=== PATIENT | female | born 1940 | race Caucasian/White ===

== ENCOUNTER 2021-06-27 19:38 | Observation (INO) | payer MEDICARE ==
[~2021-06-27] VITALS: Ht 170.2 cm; Wt 67.1 kg
[~2021-06-27 19:38] MED LIST: ALPRAZOLAM0.5 MG PO; AMLODIPINE BESYL5 MG PO; ASPIRIN81 MG PO; B-12250 MCG; CO Q-10200 MG PO; FISH OIL 1,0001 EAC1 PO; HYOSCYAMINE0.125 M2; ISOSORBIDE MONO60 MG PO; LACTULOSE10 GM/15 M PO; NITROGLYCERIN0.4 MG SL; RANITIDINE HCL150 MG PO; SIMVASTATIN20 MG PO; STOOL SOFTENER100 MG PO; ULTRAM 50MG50 MG PO; VITAMIN D1000 UNI1 PO
[2021-06-27 20:22] LABS: BASOPHILS # (AUTO) 0.1 (0.0-0.1); BASOPHILS % 0.6 % (0.0-1.0); EOSINOPHILS # (AUTO) 0.4 (0.0-0.4); EOSINOPHILS % 5.3 % (0.0-6.0); HEMATOCRIT 38.7 % (34.2-44.1); LYMPHOCYTES # (AUTO) 2.3 (1.0-3.2); LYMPHOCYTES % 28.4 % (18.0-39.1); MEAN CORPUSCULAR HEMOGLOBIN 31.3 pg (28-32); MEAN CORPUSCULAR VOLUME 100.8 fL (81-99); MONOCYTES # (AUTO) 0.9 (0.2-0.8); MONOCYTES % 10.3 % (4.4-11.3); NEUTROPHILS # (AUTO) 4.5 (2.1-6.9); NEUTROPHILS % 55.2 % (38.7-80.0); PLATELET COUNT 266 x10e3/uL (140-360); RED BLOOD COUNT 3.84 x10e6/uL (3.6-5.1); RED CELL DISTRIBUTION WIDTH 13.9 % (11.7-14.4)
[2021-06-27 20:33] LABS: INR 1.03; PROTHROMBIN TIME 14.2 seconds (11.9-14.5)
[2021-06-27 21:41] LABS: ALBUMIN 3.7 g/dL (3.5-5.0); ALBUMIN/GLOBULIN RATIO 1.1 (0.8-2.0); ANION GAP 14.7 mmol/L (8-16); CALCIUM 9.4 mg/dL (8.4-10.2); CREATININE, SERUM 1.89 mg/dL (0.57-1.11); POTASSIUM 4.7 mmol/L (3.5-5.1)
[2021-06-27] MEDS ORDERED: ASPIRIN 81 MG CHEW TAB PO ONE (22:00)
[2021-06-27] MEDS ORDERED: ASPIRIN 81 MG CHEW TAB ONE (22:15)
[2021-06-27] MEDS ORDERED: Morphine 2mg Syringe 2 MG/ML SYR IV ONE (23:00)
[2021-06-28] VITALS (10 sets, daily range): BP systolic 106–151; BP diastolic 41–83
[2021-06-28] MEDS ORDERED: MAGNESIUM SULFATE 2GM/50ML 50 ML IV ONE (00:45)
[2021-06-28] MEDS ORDERED: ENTRESTO 24 MG1 EACH PO (03:09)
[2021-06-28] MEDS ORDERED: ELIQUIS5 MG PO (03:09)
[2021-06-28] MEDS ORDERED: PANTOPRAZOLE SO40 MG PO (03:09)
[2021-06-28] MEDS ORDERED: TAMSULOSIN PO (03:09)
[2021-06-28] MEDS ORDERED: ULTRAM 50MG50 MG PO (03:09)
[2021-06-28] MEDS ORDERED: ATORVASTATIN CA40 MG PO (03:09)
[2021-06-28] MEDS ORDERED: CLOPIDOGREL75 MG PO (03:09)
[2021-06-28] MEDS ORDERED: FUROSEMIDE20 MG PO (03:09)
[2021-06-28] MEDS ORDERED: METOPROLOL SUCC25 MG PO (03:09)
[2021-06-28] MEDS: VALSARTAN/SACUBITRIL 24MG/26MG 1 EA TAB PO SCH (08:50)
[2021-06-28] MEDS: APIXABAN 5 MG TABLET PO SCH ×2 (08:50→16:32)
[2021-06-28] MEDS: METOPROLOL SUCCINATE 25 MG TAB XL PO SCH (08:50)
[2021-06-28] MEDS: CLOPIDOGREL BISULFATE 75 MG TAB PO SCH (08:50)
[2021-06-28 10:03] LABS: CREATINE KINASE MB 0.8 ng/mL (0-5.0)
[2021-06-28] MEDS ORDERED: ZIOPTAN 0.00151 EACH (13:11)
[2021-06-28] MEDS: DOCUSATE SODIUM 100 MG CAP PO SCH (13:27)
[2021-06-28] MEDS ORDERED: ALPRAZOLAM 0.5 MG TAB PO PRN (14:00)
[2021-06-28 16:24] LABS: CREATINE KINASE MB 0.7 ng/mL (0-5.0)
[2021-06-28] MEDS: GUAIFENESIN 600 MG TAB PO PRN (16:32)
[2021-06-28] MEDS ORDERED: TAMSULOSIN HCL 0.4 MG CAP PO SCH (21:00)
[2021-06-28] MEDS ORDERED: ATORVASTATIN 40 MG TAB PO SCH (21:00)
[2021-06-29] VITALS: BP 125/50
[2021-06-29 04:00] VITALS: BP 137/55
[2021-06-29 06:02] LABS: BASOPHILS # (AUTO) 0.1 (0.0-0.1); BASOPHILS % 0.7 % (0.0-1.0); EOSINOPHILS # (AUTO) 0.4 (0.0-0.4); EOSINOPHILS % 6.4 % (0.0-6.0); HEMATOCRIT 37.9 % (34.2-44.1); HEMOGLOBIN 12.2 g/dL (12.0-16.0); LYMPHOCYTES # (AUTO) 1.7 (1.0-3.2); MEAN CORPUSCULAR HEMOGLOBIN 31.5 pg (28-32); MEAN CORPUSCULAR HGB CONC 32.2 g/dL (31-35); MEAN CORPUSCULAR VOLUME 97.9 fL (81-99); MONOCYTES # (AUTO) 0.7 (0.2-0.8); MONOCYTES % 10.2 % (4.4-11.3); NEUTROPHILS # (AUTO) 3.8 (2.1-6.9); NEUTROPHILS % 57.3 % (38.7-80.0); PLATELET COUNT 251 x10e3/uL (140-360); RED BLOOD COUNT 3.87 x10e6/uL (3.6-5.1); RED CELL DISTRIBUTION WIDTH 13.7 % (11.7-14.4)
[2021-06-29 06:13] LABS: ALBUMIN 3.1 g/dL (3.5-5.0); ANION GAP 14.8 mmol/L (8-16); CALCIUM 9.3 mg/dL (8.4-10.2); CHOL/HDL RATIO 2.5 (3.0-3.6); CREATININE, SERUM 0.95 mg/dL (0.57-1.11); POTASSIUM 3.8 mmol/L (3.5-5.1)
[2021-06-29 06:35] LABS: THYROID STIMULATING HORMONE 1.362 uIU/mL (0.350-4.940)
[2021-06-29 08:13] VITALS: BP 122/60
[2021-06-29 09:00] VITALS: BP 122/60
[2021-06-29] MEDS: DOCUSATE SODIUM 100 MG CAP PO SCH (09:00)
[2021-06-29] MEDS: METOPROLOL SUCCINATE 25 MG TAB XL PO SCH (09:00)
[2021-06-29] MEDS: VALSARTAN/SACUBITRIL 24MG/26MG 1 EA TAB PO SCH (09:00)
[2021-06-29] MEDS ORDERED: CHOLECALCIFEROL 1,000 UNIT TAB PO SCH (09:00)
[2021-06-29] MEDS: APIXABAN 5 MG TABLET PO SCH (09:00)
[2021-06-29] MEDS: CLOPIDOGREL BISULFATE 75 MG TAB PO SCH (09:00)
[2021-06-29] MEDS: GUAIFENESIN 600 MG TAB PO PRN (09:30)
[2021-06-29 11:54] VITALS: BP 124/64
== END 2021-06-29 12:50 | disposition home or self-care (01) ==
LOC: ER 19:46 → ERHOLD 22:46 → MED/SURG3 06-28 01:12
PROVIDERS: ADMIT Internal Medicine; ATTEND Internal Medicine
DX: R07.9 Chest pain, unspecified (principal); I13.0 Hypertensive heart and chronic kidney disease with heart failure and stage 1 through stage 4 chronic kidney disease, or unspecified chronic kidney disease; E78.00 Pure hypercholesterolemia, unspecified; Z79.01 Long term (current) use of anticoagulants; I50.22 Chronic systolic (congestive) heart failure; N18.31 Chronic kidney disease, stage 3a; Z20.822 Contact with and (suspected) exposure to COVID-19; K21.9 Gastro-esophageal reflux disease without esophagitis; I25.10 Atherosclerotic heart disease of native coronary artery without angina pectoris; F41.9 Anxiety disorder, unspecified; Z90.710 Acquired absence of both cervix and uterus; Z85.41 Personal history of malignant neoplasm of cervix uteri; Z95.0 Presence of cardiac pacemaker; Z95.5 Presence of coronary angioplasty implant and graft; I49.5 Sick sinus syndrome; I48.0 Paroxysmal atrial fibrillation
CPT/HCPCS: 36415; 71045; 80053; 80061; 82550; 82553; 84443; 84484; 85025; 85610; 93005; 93306; 94760; 94799; 99284; G0378; J2270; J3475; U0002

== ENCOUNTER 2021-10-28 15:05 | Emergency (ER) | payer MEDICARE ==
[~2021-10-28] VITALS: Ht 322.6 cm; Wt 67.1 kg
[~2021-10-28 15:05] MED LIST changes: +ATORVASTATIN CA40 MG PO; +CLOPIDOGREL75 MG PO; +ELIQUIS5 MG PO; +ENTRESTO 24 MG1 EACH PO; +FUROSEMIDE20 MG PO; +METOPROLOL SUCC25 MG PO; +PANTOPRAZOLE SO40 MG PO; +TAMSULOSIN PO; +ZIOPTAN 0.00151 EACH
[2021-10-28] MEDS ORDERED: ACETAMIN/BUTALBITAL/CAFFEINE TAB PO ONE (15:30)
[2021-10-28] MEDS ORDERED: FIORICET 50-301 EACH PO (16:53)
[2021-10-28] MEDS ORDERED: DEXAMETHASONE SOD PHOS 10 MG/1 ML VIAL IV ONE (17:00)
== END 2021-10-28 17:15 | disposition home or self-care (01) ==
LOC: ER 15:06
DX: J32.9 Chronic sinusitis, unspecified (principal); I25.10 Atherosclerotic heart disease of native coronary artery without angina pectoris; I50.9 Heart failure, unspecified; E78.5 Hyperlipidemia, unspecified; I25.2 Old myocardial infarction; F41.9 Anxiety disorder, unspecified; Z88.8 Allergy status to other drugs, medicaments and biological substances; Z79.02 Long term (current) use of antithrombotics/antiplatelets; Z79.899 Other long term (current) drug therapy; Z95.5 Presence of coronary angioplasty implant and graft; Z95.0 Presence of cardiac pacemaker; Z85.9 Personal history of malignant neoplasm, unspecified
CPT/HCPCS: 70450; J1100

== ENCOUNTER 2022-06-23 17:19 | Emergency (ER) | payer MEDICARE ==
[~2022-06-23] VITALS: Ht 170.2 cm; Wt 75.1 kg
[~2022-06-23 17:19] MED LIST changes: +FIORICET 50-301 EACH PO
[2022-06-23] MEDS ORDERED: NURTEC ODT75 MG (18:12)
[2022-06-23] MEDS ORDERED: ELIQUIS5 MG PO (18:12)
[2022-06-23] MEDS ORDERED: LYRICA50 MG PO (18:22)
[2022-06-23] MEDS ORDERED: ultracet PO (18:22)
[2022-06-23] MEDS ORDERED: VITAMIN E180 MG (18:22)
[2022-06-23] MEDS ORDERED: FLONASE ALLERG9.9 ML INH (18:22)
[2022-06-23] MEDS ORDERED: ONDANSETRON ODT8 MG PO (18:22)
[2022-06-23] MEDS ORDERED: NITROSTAT0.4 MG SL (18:22)
[2022-06-23] MEDS ORDERED: ENTRESTO 24 MG1 EACH (18:22)
[2022-06-23] MEDS ORDERED: TYLENOL325 MG PO (18:22)
[2022-06-23] MEDS ORDERED: ZINC (18:22)
[2022-06-23] MEDS ORDERED: NEURONTIN300 MG PO (18:22)
[2022-06-23] MEDS ORDERED: HYDROCODON-ACE1 EA11 PO (18:22)
[2022-06-23] MEDS ORDERED: HALOBETASOL PRO15 G1 (18:22)
[2022-06-23] MEDS ORDERED: AZELASTINE HCL6 ML (18:22)
[2022-06-23] MEDS ORDERED: TRIAMCINOLONE A15 G1 TOP (18:22)
[2022-06-23] MEDS ORDERED: BIOTIN1000 MCG (18:22)
[2022-06-23] MEDS ORDERED: OMEPRAZOLE40 MG PO (18:22)
[2022-06-23] MEDS ORDERED: LINZESS145 MCG (18:22)
[2022-06-23] MEDS ORDERED: LEXAPRO5 MG PO (18:24)
[2022-06-23] MEDS ORDERED: CORICIDIN HBP1 EAC1 PO (18:55)
== END 2022-06-23 19:04 | disposition home or self-care (01) ==
LOC: FSED 17:47
DX: R05.9 Cough, unspecified (principal); U07.1 COVID-19; E78.5 Hyperlipidemia, unspecified; F41.9 Anxiety disorder, unspecified; I50.9 Heart failure, unspecified; I25.10 Atherosclerotic heart disease of native coronary artery without angina pectoris; I25.2 Old myocardial infarction; Z95.5 Presence of coronary angioplasty implant and graft; Z85.41 Personal history of malignant neoplasm of cervix uteri
CPT/HCPCS: 71046; 87400; 99283; U0002

== ENCOUNTER 2022-06-23 21:26 | Emergency (ER) | payer MEDICARE ==
[~2022-06-23] VITALS: Ht 170.2 cm; Wt 74.8 kg
[~2022-06-23 21:26] MED LIST changes: +AZELASTINE HCL6 ML; +BIOTIN1000 MCG; +CORICIDIN HBP1 EAC1 PO; +ENTRESTO 24 MG1 EACH; +FLONASE ALLERG9.9 ML INH; +HALOBETASOL PRO15 G1; +HYDROCODON-ACE1 EA11 PO; +LEXAPRO5 MG PO; +LINZESS145 MCG; +LYRICA50 MG PO; +NEURONTIN300 MG PO; +NITROSTAT0.4 MG SL; +NURTEC ODT75 MG; +OMEPRAZOLE40 MG PO; +ONDANSETRON ODT8 MG PO; +TRIAMCINOLONE A15 G1 TOP; +TYLENOL325 MG PO; +VITAMIN E180 MG; +ZINC; +ultracet PO
== END 2022-06-23 22:38 | disposition home or self-care (01) ==
LOC: ER 21:35
DX: R51.9 Headache, unspecified (principal); U07.1 COVID-19; I10 Essential (primary) hypertension; I50.9 Heart failure, unspecified; E78.5 Hyperlipidemia, unspecified; I48.91 Unspecified atrial fibrillation; Z85.41 Personal history of malignant neoplasm of cervix uteri; I25.2 Old myocardial infarction; Z95.1 Presence of aortocoronary bypass graft; Z95.5 Presence of coronary angioplasty implant and graft; R94.31 Abnormal electrocardiogram [ECG] [EKG]
CPT/HCPCS: 93005; 99282

== ENCOUNTER 2023-02-27 16:38 | Inpatient (IN) | payer MEDICARE ==
[~2023-02-27] VITALS: Ht 170.2 cm; Wt 75.7 kg
[~2023-02-27 16:38] MED LIST changes: +FLOMAX0.4 MG PO; -HALOBETASOL PRO15 G1; +HALOBETASOL PRO15 G1 TOP; -HYOSCYAMINE0.125 M2; +HYOSCYAMINE0.125 M2 PO; +TRAZODONE HCL50 MG PO
[2023-02-27 17:26] LABS: BASOPHILS % 0.3 % (0.0-1.0); EOSINOPHILS % 0.1 % (0.0-6.0); HEMATOCRIT 36.9 % (34.2-44.1); LYMPHOCYTES # (AUTO) 0.6 (1.0-3.2); LYMPHOCYTES % 8.3 % (18.0-39.1); MEAN CORPUSCULAR HEMOGLOBIN 29.9 pg (28-32); MEAN CORPUSCULAR HGB CONC 32.5 g/dL (31-35); MEAN CORPUSCULAR VOLUME 91.8 fL (81-99); MONOCYTES # (AUTO) 0.1 (0.2-0.8); MONOCYTES % 1.9 % (4.4-11.3); NEUTROPHILS # (AUTO) 6.4 (2.1-6.9); NEUTROPHILS % 88.4 % (38.7-80.0); PLATELET COUNT 338 x10e3/uL (140-360); RED BLOOD COUNT 4.02 x10e6/uL (3.6-5.1); RED CELL DISTRIBUTION WIDTH 13.6 % (11.7-14.4); WHITE BLOOD COUNT 7.24 x10e3/uL (4.8-10.8)
[2023-02-27 17:48] LABS: ALBUMIN 3.5 g/dL (3.5-5.0); ANION GAP 15.3 mmol/L (8-16); CALCIUM 9.4 mg/dL (8.4-10.2); CREATININE, SERUM 1.14 mg/dL (0.57-1.11); MAGNESIUM 2.2 MG/DL (1.3-2.1); POTASSIUM 4.3 mmol/L (3.5-5.1)
[2023-02-27 18:03] LABS: INR 1.07; PROTHROMBIN TIME 14.6 seconds (11.9-14.5)
[2023-02-27 18:04] LABS: PARTIAL THROMBOPLASTIN TIME 33.2 seconds (23.8-35.5)
[2023-02-27] MEDS ORDERED: ONDANSETRON HCL INJ 2MG/ML 2ML 2 MG/ML VIAL IV PRN (20:45)
[2023-02-27] MEDS ORDERED: CLONIDINE HCL 0.1 MG TAB PO PRN (20:45)
[2023-02-27] MEDS ORDERED: ACETAMINOPHEN 325 MG TAB PO PRN (20:45)
[2023-02-27 21:00] VITALS: BP 163/68; PULSE 59; RESP 18; TEMP 97.7; O2SAT 100
[2023-02-27] MEDS: ALPRAZOLAM 0.25 MG TAB PO SCH (21:00)
[2023-02-27] MEDS: ATORVASTATIN 40 MG TAB PO SCH (21:00)
[2023-02-27] MEDS: TRAZODONE HCL 50 MG TAB PO SCH (21:00)
[2023-02-27 21:30] VITALS: BP 163/68; PULSE 59; RESP 18; TEMP 97.7; O2SAT 100
[2023-02-28] VITALS (11 sets, daily range): BP systolic 119–194; BP diastolic 50–87; PULSE 56–80; RESP 12–20; TEMP 97.7–98.3; O2SAT 93–100
[2023-02-28] MEDS: HYDROCODONE/APAP 5MG-325MG TAB PO SCH ×2 (00:02→05:58)
[2023-02-28] MEDS: APIXABAN 5 MG TABLET PO SCH ×2 (08:59→16:19)
[2023-02-28] MEDS: CHOLECALCIFEROL 1,000 UNIT TAB PO SCH (08:59)
[2023-02-28] MEDS: LINACLOTIDE 145 MCG CAPSULE PO SCH (09:00)
[2023-02-28] MEDS: METOPROLOL SUCCINATE 25 MG TAB XL PO SCH (09:00)
[2023-02-28] MEDS ORDERED: TAMSULOSIN HCL 0.4 MG CAP PO SCH (09:00)
[2023-02-28] MEDS: ESCITALOPRAM OXALATE 10 MG TAB PO SCH (09:00)
[2023-02-28] MEDS: FLUTICASONE PROPIONATE NASAL SPRAY NS SCH ×2 (09:00→16:20)
[2023-02-28] MEDS: PANTOPRAZOLE SOD 40 MG TABEC PO SCH (09:00)
[2023-02-28] MEDS: CLOPIDOGREL BISULFATE 75 MG TAB PO SCH (09:00)
[2023-02-28] MEDS: DOCUSATE SODIUM 100 MG CAP PO SCH (09:00)
[2023-02-28] MEDS ORDERED: HYDROCODONE/APAP 5MG-325MG TAB PO PRN (12:30)
[2023-02-28] MEDS: SACUBITRIL/VALSARTAN 24MG/26MG 1 EA TAB PO SCH (16:19)
[2023-02-28] MEDS: ALBUTEROL/IPRATROPIUM 3 ML NEB NEB SCH ×3 (16:43→22:49)
[2023-02-28] MEDS: ALPRAZOLAM 0.25 MG TAB PO SCH (20:26)
[2023-02-28] MEDS: METHYLPREDNISOLONE SOD SUCC 40 MG/ML VIAL 1ML IV SCH (20:26)
[2023-02-28] MEDS: TRAZODONE HCL 50 MG TAB PO SCH (20:26)
[2023-02-28] MEDS: ATORVASTATIN 40 MG TAB PO SCH (20:27)
[2023-03-01] VITALS (8 sets, daily range): BP systolic 123–149; BP diastolic 50–78; PULSE 60–68; RESP 17–19; TEMP 97.2–98.3; O2SAT 95–98
[2023-03-01] MEDS: ALBUTEROL/IPRATROPIUM 3 ML NEB NEB SCH ×3 (02:42→11:29)
[2023-03-01] MEDS: FLUTICASONE PROPIONATE NASAL SPRAY NS SCH (09:00)
[2023-03-01] MEDS: LINACLOTIDE 145 MCG CAPSULE PO SCH (09:00)
[2023-03-01] MEDS: CHOLECALCIFEROL 1,000 UNIT TAB PO SCH (09:03)
[2023-03-01] MEDS: METHYLPREDNISOLONE SOD SUCC 40 MG/ML VIAL 1ML IV SCH (09:03)
[2023-03-01] MEDS: SACUBITRIL/VALSARTAN 24MG/26MG 1 EA TAB PO SCH (09:03)
[2023-03-01] MEDS: CLOPIDOGREL BISULFATE 75 MG TAB PO SCH (09:04)
[2023-03-01] MEDS: DOCUSATE SODIUM 100 MG CAP PO SCH (09:04)
[2023-03-01] MEDS: PANTOPRAZOLE SOD 40 MG TABEC PO SCH (09:05)
[2023-03-01] MEDS: METOPROLOL SUCCINATE 25 MG TAB XL PO SCH (09:05)
[2023-03-01] MEDS: ESCITALOPRAM OXALATE 10 MG TAB PO SCH (09:05)
[2023-03-01] MEDS: APIXABAN 5 MG TABLET PO SCH (09:05)
[2023-03-01] MEDS ORDERED: VENTOLIN HFA18 GM INH (12:10)
[2023-03-01] MEDS ORDERED: TAMSULOSIN HCL 0.4 MG CAP PO SCH (21:00)
== END 2023-03-01 13:38 | disposition home or self-care (01) | DRG 202 ==
LOC: ER 16:53 → ERHOLD 18:42 → MED/SURG3 20:33
PROVIDERS: ADMIT Internal Medicine; ATTEND Internal Medicine
DX: J40 Bronchitis, not specified as acute or chronic (principal); I13.0 Hypertensive heart and chronic kidney disease with heart failure and stage 1 through stage 4 chronic kidney disease, or unspecified chronic kidney disease; I50.22 Chronic systolic (congestive) heart failure; Z95.811 Presence of heart assist device; N18.30 Chronic kidney disease, stage 3 unspecified; I48.91 Unspecified atrial fibrillation; I25.10 Atherosclerotic heart disease of native coronary artery without angina pectoris; I25.2 Old myocardial infarction; Z95.5 Presence of coronary angioplasty implant and graft; E78.00 Pure hypercholesterolemia, unspecified; F41.9 Anxiety disorder, unspecified; R91.1 Solitary pulmonary nodule; K21.9 Gastro-esophageal reflux disease without esophagitis; G89.29 Other chronic pain; F32.A Depression, unspecified; G43.909 Migraine, unspecified, not intractable, without status migrainosus; Z95.0 Presence of cardiac pacemaker; Z79.01 Long term (current) use of anticoagulants; Z79.899 Other long term (current) drug therapy; Z11.52 Encounter for screening for COVID-19
CPT/HCPCS: 36415; 71045; 78580; 80053; 82550; 83735; 83880; 84484; 85025; 85610; 85730; 93005; 93306; 94640; 94799; 99284; A9540; J2920; U0002